=== PATIENT | male | born 1985 | race Caucasian/White ===

== ENCOUNTER 2016-12-05 06:07 | Inpatient (IN) | payer SELFPAY ==
[~2016-12-05] VITALS: Ht 167.6 cm; Wt 70.0 kg
[2016-12-05] VITALS (11 sets, daily range): BP systolic 131–149; BP diastolic 74–101; PULSE 70–102; RESP 18–20; TEMP 97.6–98.8; O2SAT 95–97
[2016-12-05] MEDS ORDERED: SODIUM CHLORIDE 0.9% FLUSH 10 ML FLUSH IVF PRN (06:30)
[2016-12-05] MEDS ORDERED: LORazepam 2 MG/ML VIAL IVS PRN (06:30)
--- NOTE | 2016-12-05 06:33 | PD ---
HPI . Seizure Chief Complaint: Seizure Time Seen by Provider: 06:19 Travel History International Travel<30 days: No Contact w/Intl Traveler<30days: No Traveled to known affect area: No History of Present Illness HPI Patient presents with the chief complaint of seizure. The patient's parents heard a thud in the bathroom. They found him unresponsive. EMS was called. The patient had a seizure prior to the arrival of EMS. We presumed that the was caused by a first seizure. The parents did not witness seizure activity initially but did witness seizure activity after hearing the side. The patient reports no prior history of seizures. He does give a prior history of alcohol abuse but states that he has not used alcohol for 3 months. He did have a drink last night. PFSH Past Medical History Medical History: Denies Significant Hx Tetanus Vaccination: Unknown Influenza Vaccination: No Past Surgical History Surgical History: No Previous Surgery Social History Alcohol Use: Yes (past etoh use. ) Tobacco Use: No Substance Use: No Allergies-Medications (Allergen,Severity, Reaction): Coded Allergies: No Known Allergies (Unverified , 12/05/16) Reported Meds & Prescriptions Reported Meds & Active Scripts Active No Active Prescriptions or Reported Medications Review of Systems Except as stated in HPI: all other systems reviewed are Neg Musculoskeletal: Positive: Pain (mid to low back pain. The patient believes that he struck his back on the bathtub.) Neurologic: Positive: Seizures Physical Exam Narrative GENERAL: The patient is currently awake and alert and fully oriented. He has amnestic for the events prior to his arrival. SKIN: Warm and dry. HEAD: Atraumatic. Normocephalic. EYES: Pupils equal and round. Extraocular movements are intact. ENT: No nasal bleeding or discharge. Mucous membranes pink and moist. NECK: Immobilized with a [place] collar. CARDIOVASCULAR: Regular rate and rhythm. Heart sounds normal. RESPIRATORY: No accessory muscle use. Lungs clear with full air movement throughout. GASTROINTESTINAL: Abdomen soft, non-tender, nondistended. MUSCULOSKELETAL: No obvious deformities. No edema. NEUROLOGICAL: Awake and alert. No obvious cranial nerve deficits. Motor grossly within normal limits. Normal speech. PSYCHIATRIC: Appropriate mood and affect; insight and judgment normal. Data Data Last Documented VS Vital Signs Date Time Temp Pulse Resp B/P (MAP) Pulse Ox O2 Delivery O2 Flow Rate FiO2 12/05/16 07:47 78 18 140/79 (99) 96 Room Air 12/05/16 06:13 98.6 Orders Orders Complete Blood Count With Diff (12/05/16 06:19) Basic Metabolic Panel (Bmp) (12/05/16 06:19) Alcohol (Ethanol) (12/05/16 06:19) Drug Screen, Random Urine (12/05/16 06:19) Ct Brain W/O Iv Contrast(Rout) (12/05/16 ) Ecg Monitoring (12/05/16 06:19) Iv Access Insert/Monitor (12/05/16 06:19) Oximetry (12/05/16 06:19) Sodium Chloride 0.9% Flush (Ns Flush) (12/05/16 06:30) Lorazepam Inj (Ativan Inj) (12/05/16 06:30) Ct Cerv Spine W/O Contrast (12/05/16 06:19) Ct Thor Spine W/O Contrast (12/05/16 06:19) Morphine Inj (Morphine Inj) (12/05/16 07:25) Morphine Inj (Morphine Inj) (12/05/16 07:45) Labs Laboratory Tests Test 12/05/16 06:40 White Blood Count 5.0 TH/MM3 Red Blood Count 4.81 MIL/MM3 Hemoglobin 15.1 GM/DL Hematocrit 44.8 % Mean Corpuscular Volume 93.1 FL Mean Corpuscular Hemoglobin 31.4 PG Mean Corpuscular Hemoglobin Concent 33.8 % Red Cell Distribution Width 13.9 % Platelet Count 129 TH/MM3 Mean Platelet Volume 9.3 FL Neutrophils (%) (Auto) 54.9 % Lymphocytes (%) (Auto) 36.2 % Monocytes (%) (Auto) 6.8 % Eosinophils (%) (Auto) 1.3 % Basophils (%) (Auto) 0.8 % Neutrophils # (Auto) 2.7 TH/MM3 Lymphocytes # (Auto) 1.8 TH/MM3 Monocytes # (Auto) 0.3 TH/MM3 Eosinophils # (Auto) 0.1 TH/MM3 Basophils # (Auto) 0.0 TH/MM3 CBC Comment AUTO DIFF Blood Urea Nitrogen 6 MG/DL Creatinine 1.09 MG/DL Random Glucose 155 MG/DL Calcium Level 10.0 MG/DL Sodium Level 139 MEQ/L Potassium Level 3.3 MEQ/L Chloride Level 98 MEQ/L Carbon Dioxide Level 19.8 MEQ/L Anion Gap 21 MEQ/L Estimat Glomerular Filtration Rate 79 ML/MIN Ethyl Alcohol Level LESS THAN 3 MG/DL MDM Medical Decision Making Medical Screen Exam Complete: Yes Emergency Medical Condition: Yes Differential Diagnosis Differential diagnosis of seizure includes but is not limited to epilepsy, electrolyte abnormality, previous stroke, closed head injury Narrative Course This patient presents with new onset seizure. He does give a history of previous alcohol abuse. He did sustain a fall with a seizure. Therefore, cervical precautions have been instituted. Seizure workup has been ordered including CT of his head, C-spine and thoracic spine (because of the fall/trauma) Ativan has been ordered when necessary. His care will be turned over to the oncoming physician at 7 AM. Diagnosis Primary Impression: Seizure Scripts No Active Prescriptions or Reported Meds Condition: Stable Jina Uriarte MD Dec 05, 2016 06:33
--- NOTE | 2016-12-05 06:49 | RADRPT ---
EXAM DATE/TIME: 12/05/2016 06:26 [facility] COMPARISON: No previous studies available for comparison. INDICATIONS : Trauma, possible seizure and fall. RADIATION DOSE: 56.35 CTDIvol (mGy) MEDICAL HISTORY : None SURGICAL HISTORY : None. ENCOUNTER: Initial ACUITY: 1 day PAIN SCALE: 2/10 LOCATION: cranial TECHNIQUE: Multiple contiguous axial images were obtained of the head. Using automated exposure control and adj ustment of the mA and/or kV according to patient size, radiation dose was kept as low as reasonably a chievable to obtain optimal diagnostic quality images. DICOM format image data is available electro nically for review and comparison. FINDINGS: CEREBRUM: The ventricles are normal for age. No evidence of midline shift, mass lesion, hemorrhage or acute in farction. No extra-axial fluid collections are seen. POSTERIOR FOSSA: The cerebellum and brainstem are intact. The 4th ventricle is midline. The cerebellopontine angle i s unremarkable. EXTRACRANIAL: The visualized portion of the orbits is intact. SKULL: The calvaria is intact. No evidence of skull fracture. CONCLUSION: Normal examination for a patient of this age. Jw Soriano MD on December 05, 2016 at 6:46 Board Certified Radiologist. This report was verified electronically.
--- NOTE | 2016-12-05 06:57 | RADRPT ---
EXAM DATE/TIME: 12/05/2016 06:28 [facility] COMPARISON: No previous studies available for comparison. INDICATIONS : Trauma, possible seizure and fall. RADIATION DOSE: 37.38 CTDIvol (mGy) MEDICAL HISTORY : None SURGICAL HISTORY : None. ENCOUNTER: Initial ACUITY: 1 day PAIN SCALE: 3/10 LOCATION: neck TECHNIQUE: Volumetric scanning of the cervical spine was performed. Multiplanar reconstructions in the sagittal, coronal and oblique axial planes were performed. Using automated exposure control and adjustment o f the mA and/or kV according to patient size, radiation dose was kept as low as reasonably achievable to obtain optimal diagnostic quality images. DICOM format image data is available electronically f or review and comparison. FINDINGS: VERTEBRAE: Normal vertebral body height. ALIGNMENT: No evidence of subluxation. C2-C3: The bony spinal canal is normal in size. No evidence of disc bulge or herniation. The neural forami na are bilaterally patent. C3-C4: The bony spinal canal is normal in size. No evidence of disc bulge or herniation. The neural forami na are bilaterally patent. C4-C5: The bony spinal canal is normal in size. No evidence of disc bulge or herniation. The neural forami na are bilaterally patent. C5-C6: The bony spinal canal is normal in size. No evidence of disc bulge or herniation. The neural forami na are bilaterally patent. C6-C7: The bony spinal canal is normal in size. No evidence of disc bulge or herniation. The neural forami na are bilaterally patent. C7-T1: The bony spinal canal is normal in size. No evidence of disc bulge or herniation. The neural forami na are bilaterally patent. CONCLUSION: Normal examination. Jw Soriano MD on December 05, 2016 at 6:54 Board Certified Radiologist. This report was verified electronically.
--- NOTE | 2016-12-05 07:02 | RADRPT ---
EXAM DATE/TIME: 12/05/2016 06:30 [facility] COMPARISON: No previous studies available for comparison. INDICATIONS : Trauma, possible seizure and fall. RADIATION DOSE: 15.23 CTDIvol (mGy) MEDICAL HISTORY : None SURGICAL HISTORY : None. ENCOUNTER: Initial ACUITY: 1 day PAIN SCALE: 7/10 LOCATION: thoracic. TECHNIQUE: Volumetric scanning of the thoracic spine was performed. Multiplanar reconstructions in the sagittal , coronal and oblique axial planes were performed. Using automated exposure control and adjustment o f the mA and/or kV according to patient size, radiation dose was kept as low as reasonably achievable to obtain optimal diagnostic quality images. DICOM format image data is available electronically f or review and comparison. FINDINGS: There is a [id number] compression fracture of T8 with minimal retropulsion. This does not resul t in significant canal stenosis. There is also a minimal superior endplate compression fracture of T10. No spondylolisthesis. No canal stenosis. No discrete disc protrusions. No other fractures are identified. CONCLUSION: 1. At T8 there is a [id number] compression fracture with minimal retropulsion but without signi ficant canal stenosis or spondylolisthesis. 2. Minimal relatively nondisplaced superior endplate fracture of T10 without retropulsion. 3. Minimal scoliosis. Jw Soriano MD on December 05, 2016 at 6:56 Board Certified Radiologist. This report was verified electronically.
[2016-12-05 07:14] LABS: AUTOMATED NEUTROPHIL # 2.7 TH/MM3 (1.8-7.7); BASOPHIL % 0.8 % (0.0-2.0); EOSINOPHIL # 0.1 TH/MM3 (0-0.4); EOSINOPHIL % 1.3 % (0.0-4.0); HEMATOCRIT 44.8 % (39.0-51.0); LYMPH % 36.2 % (9.0-44.0); LYMPHOCYTE # 1.8 TH/MM3 (1.0-4.8); MEAN CELL VOLUME 93.1 FL (80.0-100.0); MEAN CORPUSCULAR HEMOGLOBIN 31.4 PG (27.0-34.0); MEAN CORPUSCULAR HGB CONC 33.8 % (32.0-36.0); MONO % 6.8 % (0.0-8.0); NEUT % 54.9 % (16.0-70.0); PLATELET COUNT 129 TH/MM3 (150-450); RED BLOOD COUNT 4.81 MIL/MM3 (4.50-5.90); RED CELL DISTRIBUTION WIDTH 13.9 % (11.6-17.2)
[2016-12-05 07:17] LABS: HEMO FLAGS AUTO DIFF
[2016-12-05] MEDS ORDERED: MORPHINE SULFATE 8 MG/ML INJ ONE (07:25)
[2016-12-05 07:30] LABS: ANION GAP 21 MEQ/L (5-15); BICARBONATE 19.8 MEQ/L (21.0-32.0); BLOOD UREA NITROGEN 6 MG/DL (7-18); CHLORIDE 98 MEQ/L (98-107); GLOMERULAR FILTRATION RATE 79 ML/MIN (>89); POTASSIUM 3.3 MEQ/L (3.5-5.1); SODIUM (NA) 139 MEQ/L (136-145)
[2016-12-05 07:43] LABS: ALCOHOL LESS THAN 3 MG/DL (0-5)
[2016-12-05] MEDS ORDERED: MORPHINE SULFATE 4 MG/ML INJ IV PUSH ONE (07:45)
[2016-12-05] MEDS ORDERED: ACETAMINOPHEN 325 MG TAB PO PRN (08:15)
[2016-12-05] MEDS ORDERED: SODIUM CHLORIDE 0.9% FLUSH 10 ML FLUSH IV FLUSH PRN (08:15)
[2016-12-05] MEDS ORDERED: LACTULOSE SYRUP 20 GM/30 ML CUP PO PRN (08:15)
[2016-12-05] MEDS ORDERED: ONDANSETRON HCL 4 MG/2 ML VIAL IVP PRN (08:15)
[2016-12-05] MEDS ORDERED: NALOXONE HCL 0.4 MG/ML AMP IV PRN (08:15)
[2016-12-05] MEDS ORDERED: BISACODYL 10 MG SUPP RECTAL PRN (08:15)
[2016-12-05] MEDS ORDERED: MAGNESIUM HYDROXIDE SUSP 30 ML CUP PO PRN (08:15)
[2016-12-05] MEDS ORDERED: SENNOSIDES 8.6 MG TAB PO PRN (08:15)
[2016-12-05 08:20] LABS: BANDS 7 % (0-6); MYELOCYTES 2 % (0-0); NEUTROPHIL # MANUAL DIFF 2.8 TH/MM3 (1.8-7.7); POLYS (SEG NEUTROPHILS) 47 % (16-70); WBC DIFF SAMPLE 100
[2016-12-05 08:21] LABS: PLATELET ESTIMATE SMEAR LOW (NORMAL); PLATELET MORPHOLOGY NORMAL (NORMAL); SCAN/DIFF FINAL DIFF MANUAL
--- NOTE | 2016-12-05 08:44 | PD ---
Physical Exam Date Seen by Provider: Dec 05, 2016 Time Seen by Provider: 08:42 Narrative 31-year-old male came to the emergency room with history of a seizure that was heard by his parents upstairs in his bathroom. Patient used to be an alcoholic but was recovering and then drank alcohol yesterday. He has never had seizures before. Please refer to the previous ER physician's notes for history and physical details. Case was signed out to me to follow-up on the CAT scan and blood test result. CT scan of the thoracic spine showed T8 compression fracture. I discussed the case with the admitting physician who has accepted the patient which is Dr. Oviedo. I discussed the case with the neurosurgeon Dr. Cortes who will consult on the patient. Patient is currently getting medicated for pain. Patient and family has been notified about the findings. Data Data Last Documented VS Vital Signs Date Time Temp Pulse Resp B/P (MAP) Pulse Ox O2 Delivery O2 Flow Rate FiO2 12/05/16 08:00 88 18 134/76 (95) 96 Room Air 12/05/16 06:13 98.6 Orders Orders Complete Blood Count With Diff (12/05/16 06:19) Basic Metabolic Panel (Bmp) (12/05/16 06:19) Alcohol (Ethanol) (12/05/16 06:19) Drug Screen, Random Urine (12/05/16 06:19) Ct Brain W/O Iv Contrast(Rout) (12/05/16 ) Ecg Monitoring (12/05/16 06:19) Iv Access Insert/Monitor (12/05/16 06:19) Oximetry (12/05/16 06:19) Sodium Chloride 0.9% Flush (Ns Flush) (12/05/16 06:30) Lorazepam Inj (Ativan Inj) (12/05/16 06:30) Ct Cerv Spine W/O Contrast (12/05/16 06:19) Ct Thor Spine W/O Contrast (12/05/16 06:19) Morphine Inj (Morphine Inj) (12/05/16 07:25) Morphine Inj (Morphine Inj) (12/05/16 07:45) Place In Observation (12/05/16 ) Vital Signs (Adult) Q4H (12/05/16 08:05) Neuro Checks Q4H (12/05/16 08:05) Activity Oob With Assistance (12/05/16 08:05) Diet Heart Healthy (12/05/16 Breakfast) Sodium Chlor 0.9% 1000 Ml Inj (Ns 1000 M (12/05/16 09:00) Sodium Chloride 0.9% Flush (Ns Flush) (12/05/16 08:15) Sodium Chloride 0.9% Flush (Ns Flush) (12/05/16 09:00) Acetaminophen (Tylenol) (12/05/16 08:15) Ondansetron Inj (Zofran Inj) (12/05/16 08:15) Basic Metabolic Panel (Bmp) (12/06/16 06:00) Complete Blood Count With Diff (12/06/16 06:00) Resp Oxygen Sebastian C Titrat 1-4 L (12/05/16 ) Scd Bilateral/Knee High SHANELL.BID (12/05/16 08:05) Naloxone Inj (Narcan Inj) (12/05/16 08:15) Docusate Sodium-Senna (Tori-Colace) (12/05/16 09:00) Magnesium Hydroxide Liq (Milk Of Magnesi (12/05/16 08:15) Sennosides (Senokot) (12/05/16 08:15) Bisacodyl Supp (Dulcolax Supp) (12/05/16 08:15) Lactulose Liq (Lactulose Liq) (12/05/16 08:15) Consult Neurology (12/05/16 ) Consult Neurosurgery (12/05/16 ) (Hub Use Only)Inp Phy Cons/Ref (12/05/16 ) (Hub Use Only)Inp Phy Cons/Ref (12/05/16 ) Admit Order (Ed Use Only) (12/05/16 08:21) Labs Laboratory Tests Test 12/05/16 06:40 White Blood Count 5.0 TH/MM3 Red Blood Count 4.81 MIL/MM3 Hemoglobin 15.1 GM/DL Hematocrit 44.8 % Mean Corpuscular Volume 93.1 FL Mean Corpuscular Hemoglobin 31.4 PG Mean Corpuscular Hemoglobin Concent 33.8 % Red Cell Distribution Width 13.9 % Platelet Count 129 TH/MM3 Mean Platelet Volume 9.3 FL Neutrophils (%) (Auto) 54.9 % Lymphocytes (%) (Auto) 36.2 % Monocytes (%) (Auto) 6.8 % Eosinophils (%) (Auto) 1.3 % Basophils (%) (Auto) 0.8 % Neutrophils # (Auto) 2.7 TH/MM3 Lymphocytes # (Auto) 1.8 TH/MM3 Monocytes # (Auto) 0.3 TH/MM3 Eosinophils # (Auto) 0.1 TH/MM3 Basophils # (Auto) 0.0 TH/MM3 CBC Comment AUTO DIFF Differential Total Cells Counted 100 Neutrophils % (Manual) 47 % Band Neutrophils % 7 % Lymphocytes % 33 % Monocytes % 11 % Neutrophils # (Manual) 2.8 TH/MM3 Myelocytes 2 % Differential Comment FINAL DIFF MANUAL Platelet Estimate LOW Platelet Morphology Comment NORMAL Red Cell Morphology Comment NORMAL Blood Urea Nitrogen 6 MG/DL Creatinine 1.09 MG/DL Random Glucose 155 MG/DL Calcium Level 10.0 MG/DL Sodium Level 139 MEQ/L Potassium Level 3.3 MEQ/L Chloride Level 98 MEQ/L Carbon Dioxide Level 19.8 MEQ/L Anion Gap 21 MEQ/L Estimat Glomerular Filtration Rate 79 ML/MIN Hemoglobin A1c 5.2 % 25-Hydroxy Vitamin D Total 29.8 ng/ML Ethyl Alcohol Level LESS THAN 3 MG/DL MDM Supervised Visit with MEGGAN: No Physician Communication Physician Communication Dr. Cortes Diagnosis Primary Impression: Seizure Additional Impressions: New onset seizure Compression fx, thoracic spine Qualified Codes: S22.000A - Wedge compression fracture of unspecified thoracic vertebra, initial encounter for closed fracture Admitting Information Admitting Physician Requests: Admit Scripts Potassium Chloride ER (K-Tab) 10 Meq Tab 10 MEQ PO BID for Electrolyte Replacement, #10 TAB 0 Refills Prov: Justino Oviedo DO 12/06/16 Folic Acid-B12-B6 (Foltabs) 0.8-115-10 Mg Tab 1 TAB PO DAILY for Nutritional Supplement, #30 TAB 0 Refills Prov: Justino Oviedo DO 12/06/16 Thiamine HCl (Gnp Vitamin B-1) 100 Mg Tab 100 MG PO DAILY for Vitamin, #30 TAB Prov: Justino Oviedo DO 12/06/16 Oxycodone-Acetaminophen (Oxycodone-Acetaminophen) 7.5-325 mg Tab 1 TAB PO Q6H Y for pain scale 5-10, #30 TAB Prov: Justino Oviedo DO 12/06/16 Chlordiazepoxide HCl (Chlordiazepoxide HCl) 10 Mg Capsule 10 MG PO QID Y for Alcohol withdrawal, #20 CAP Prov: Justino Oviedo DO 12/06/16 Condition: Stable Lazaro Flood MD Dec 05, 2016 08:44
[2016-12-05] MEDS: DOCUSATE SODIUM 50 MG/SENNA 8.6 MG TAB PO SCH ×2 (09:00→21:00)
[2016-12-05] MEDS ORDERED: traMADol HCL 50 MG TAB PO PRN (09:00)
[2016-12-05] MEDS: SODIUM CHLORIDE 0.9% FLUSH 10 ML FLUSH IV FLUSH SCH ×2 (09:00→22:26)
[2016-12-05] MEDS ORDERED: LORazepam 2 MG/ML VIAL IV PUSH PRN ×5 (09:15→09:30)
[2016-12-05] MEDS: SODIUM CHLOR 0.9% 1000 ML INJ 1,000 ML IV SCH ×2 (09:28→22:25)
[2016-12-05] MEDS: POTASSIUM CHLORIDE 25 MEQ EFFERVESCENT TAB NG SCH (09:28)
[2016-12-05] MEDS ORDERED: FLUMAZENIL 0.5 MG/5 ML VIAL IV PUSH PRN (09:30)
[2016-12-05] MEDS ORDERED: HALOPERIDOL LACTATE 5 MG/ML AMP IM PRN (09:30)
[2016-12-05] MEDS ORDERED: LORazepam 2 MG TAB PO PRN (09:30)
[2016-12-05] MEDS ORDERED: LORazepam 1 MG TAB PO PRN (09:30)
--- NOTE | 2016-12-05 09:42 | HHI.HP ---
[facility] Service [facility] Primary Care Physician Bill Mcallister MD Admission Diagnosis New onset seizure, T8 compression fracture, Diagnoses: Chief Complaint: seizure Travel History International Travel<30 Days: No Contact w/Intl Traveler <30 Da: No Traveled to Known Affected Are: No History of Present Illness Written by Dian Dejesus, acting as scribe for Dr. Oviedo on 12/05/16 at 09:41. This note was transcribed by scribe BRIGETTE Weiss. I, Dr. Pedro Oviedo personally performed the history, physical exam, and medical decision making; and confirmed the accuracy of the information in the transcribed note. Authenticated by Dr. Pedro Oviedo on 12/05/16 at 21:54. 31-year-old male with history of alcohol abuse presents after a seizure this morning 12/05. The patient states he quit drinking alcohol 3 months ago however has been drinking intermittently when the tremors become severe. 8 days ago he made a decision to quit drinking altogether. Yesterday he had severe shakes so he decided to have 1 beer last night. This morning at 5:30am he went to the restroom then he vaguely remembers the onset of a seizure but has little recollection after. The patient's mother and father are at bedside who assist with the history. His mother states she heard a loud noise this morning, ran into the restroom and found the patient had fallen off the toilet, pants around ankles, with his head against the wall and full body shaking/convulsing. No reported tongue biting, or bowel/bladder incontinence however he had just used the restroom and with a loose stool in the toilet. His father at bedside says his pupils were fixed and dilated but he was still breathing. The patient was very confused and not responding. They suspect when the patient started seizing , he fell forward hitting the top of his head on the wall. Family reports no prior episodes of seizures. His mother states he has been trying very hard to quit drinking however has significant tremors when he stops drinking. She also reports he has been confused lately with poor memory. 2-3 days ago he did have a couple beers because of the tremors. Yesterday his mother administered 3 very small doses of liquor. The patient has been reading a lot on how to quit alcohol and how to taper off. The patient is still very motivated to quit drinking however admits it has been very difficult. The patient reports some mid back pain but denies any lower extremity numbness or weakness. He denies any fevers/chills, chest pain, shortness of breath, nausea/vomiting, or abdominal pains. Review of Systems Except as stated in HPI: all other systems reviewed are Neg Past Family Social History Past Medical History Denies any significant medical history. Past Surgical History Denies any prior major surgeries. Reported Medications Denies taking any medications on a regular basis. Allergies: Coded Allergies: No Known Allergies (Unverified , 12/05/16) Active Ordered Medications Current Medications Medications (Trade) Dose Ordered Sig/Oz Route Start Time Stop Time Status Last Admin Sodium Chloride 1,000 ml @ 100 mls/hr Q10H IV 12/05/16 09:00 12/05/16 09:28 (NS Flush) 2 ml UNSCH PRN IV FLUSH 12/05/16 08:15 (NS Flush) 2 ml BID IV FLUSH 12/05/16 09:00 (Tylenol) 650 mg Q4H PRN PO 12/05/16 08:15 (Zofran Inj) 4 mg Q6H PRN IVP 12/05/16 08:15 (Narcan Inj) 0.4 mg UNSCH PRN IV 12/05/16 08:15 (Tori-Colace) 1 tab BID PO 12/05/16 09:00 (Milk Of Magnesia Liq) 30 ml Q12H PRN PO 12/05/16 08:15 (Senokot) 17.2 mg Q12H PRN PO 12/05/16 08:15 (Dulcolax Supp) 10 mg DAILY PRN RECTAL 12/05/16 08:15 (Lactulose Liq) 30 ml DAILY PRN PO 12/05/16 08:15 (K-Lyte Cl Eff) 25 meq DAILY NG 12/05/16 09:00 12/05/16 09:28 (Ativan Inj) 1 mg Q2H PRN IV PUSH 12/05/16 09:15 Multivitamins 10 ml/Folic Acid 1 mg/Sodium Chloride 510.2 ml @ 125 mls/hr Q24H IV 12/05/16 12:00 12/10/16 11:59 Thiamine HCl 100 mg/Sodium Chloride 101 ml @ 100 mls/hr Q24H IV 12/05/16 12:00 12/08/16 11:59 (Vitamin B1) 100 mg DAILY PO 12/08/16 09:00 (Romazicon Inj) 0.2 mg Q1M PRN IV PUSH 12/05/16 09:30 (Ativan) 1 mg Q4H PRN PO 12/05/16 09:30 (Ativan Inj) 1 mg Q4H PRN IV PUSH 12/05/16 09:30 (Ativan) 2 mg Q2H PRN PO 12/05/16 09:30 (Ativan Inj) 2 mg Q2H PRN IV PUSH 12/05/16 09:30 (Ativan Inj) 2 mg Q1H PRN IV PUSH 12/05/16 09:30 (Ativan Inj) 2 mg Q15M PRN IV PUSH 12/05/16 09:30 (Haldol Inj) 2 mg Q15M PRN IM 12/05/16 09:30 (Percocet 7.5-325 Mg) 1 tab Q6H PRN PO 12/05/16 09:45 12/05/16 11:18 (Morphine Inj) 2 mg Q3H PRN IV PUSH 12/05/16 10:00 Family History Paternal grandfather with diabetes, age 61 with CHF (no [place] or arrhythmia) Father with throat cancer, survived Social History Quit smoking cigarettes 3 months ago, now using vapor or e-cigarette occasionally Prior heavy alcohol abuse, now trying to quit Denies any illicit drug use (although admits to taking 1/2tab of a friend's Percocet a few days ago for back pain after moving boxes/furniture, mother verifies this) Physical Exam Vital Signs Vital Signs Date Time Temp Pulse Resp B/P (MAP) Pulse Ox O2 Delivery O2 Flow Rate FiO2 12/05/16 08:36 96 21 12/05/16 07:47 78 18 140/79 (99) 96 Room Air 12/05/16 07:47 96 Room Air 12/05/16 06:13 98.6 102 18 140/80 (100) 95 Physical Exam GENERAL: Well-nourished, well-developed patient in NAD. Tremulous. SKIN: Warm and dry. No rash. HEAD: Normocephalic. Atraumatic. EYES: Pupils equal and round. No scleral icterus. No injection or drainage. ENT: No nasal bleeding or discharge. Mucous membranes pink and moist. NECK: Supple. Trachea midline. CARDIOVASCULAR: Regular rate and rhythm. S1, S2 noted. No murmur appreciated. RESPIRATORY: No accessory muscle use. Clear to auscultation. Breath sounds equal bilaterally. GASTROINTESTINAL: Abdomen soft, non-tender, nondistended. Normoactive bowel sounds x4. MUSCULOSKELETAL: No obvious deformities. Extremities without clubbing, cyanosis , or edema. NEUROLOGICAL: Awake and alert. No obvious cranial nerve deficits. Motor grossly within normal limits. 5/5 muscle strength in bilateral upper and lower extremities. Normal speech. PSYCHIATRIC: Anxious mood; insight and judgment normal. Laboratory Laboratory Tests Test 12/05/16 06:40 12/05/16 08:30 White Blood Count 5.0 Red Blood Count 4.81 Hemoglobin 15.1 Hematocrit 44.8 Mean Corpuscular Volume 93.1 Mean Corpuscular Hemoglobin 31.4 Mean Corpuscular Hemoglobin Concent 33.8 Red Cell Distribution Width 13.9 Platelet Count 129 Mean Platelet Volume 9.3 Neutrophils (%) (Auto) 54.9 Lymphocytes (%) (Auto) 36.2 Monocytes (%) (Auto) 6.8 Eosinophils (%) (Auto) 1.3 Basophils (%) (Auto) 0.8 Neutrophils # (Auto) 2.7 Lymphocytes # (Auto) 1.8 Monocytes # (Auto) 0.3 Eosinophils # (Auto) 0.1 Basophils # (Auto) 0.0 CBC Comment AUTO DIFF Differential Total Cells Counted 100 Neutrophils % (Manual) 47 Band Neutrophils % 7 Lymphocytes % 33 Monocytes % 11 Neutrophils # (Manual) 2.8 Myelocytes 2 Differential Comment FINAL DIFF MANUAL Platelet Estimate LOW Platelet Morphology Comment NORMAL Red Cell Morphology Comment NORMAL Blood Urea Nitrogen 6 Creatinine 1.09 Random Glucose 155 Calcium Level 10.0 Sodium Level 139 Potassium Level 3.3 Chloride Level 98 Carbon Dioxide Level 19.8 Anion Gap 21 Estimat Glomerular Filtration Rate 79 Ethyl Alcohol Level LESS THAN 3 Urine Opiates Screen POS Urine Barbiturates Screen NEG Urine Amphetamines Screen NEG Urine Benzodiazepines Screen NEG Urine Cocaine Screen NEG Urine Cannabinoids Screen NEG Result Diagram: 12/05/16 0640 12/05/16 0640 Imaging 12/05/16- CT brain without IV contrast normal 12/05/16- CT cervical spine without contrast unremarkable 12/05/16- CT thoracic spine: T8 with mild to moderate compression fracture with minimal retropulsion but without significant canal stenosis or spondylolisthesis ; minimal relatively nondisplaced superior endplate fracture of T10 without retropulsion; minimal scoliosis Caprini VTE Risk Assessment Caprini VTE Risk Assessment: No/Low Risk (score <= 1) Caprini Risk Assessment Model Point Value = 1 Point Value = 2 Point Value = 3 Point Value = 5 Age 41-60 Minor surgery BMI > 25 kg/m2 Swollen legs Varicose veins or History of unexplained or recurrent spontaneous Oral contraceptives or hormone replacement Sepsis (< 1 month) Serious lung disease, including pneumonia (< 1 month) Abnormal pulmonary function Acute myocardial infarction Congestive heart failure (< 1 month) History of inflammatory bowel disease Medical patient at bed rest Age 61-74 Arthroscopic surgery Major open surgery (> 45 min) Laparoscopic surgery (> 45 min) Malignancy Confined to bed (> 72 hours) Immobilizing plaster cast Central venous access Age >= 75 History of VTE Family history of VTE Factor V Leiden Prothrombin [id number] Lupus anticoagulant Anticardiolipin antibodies Elevated serum homocysteine Heparin-induced thrombocytopenia Other congenital or acquired thrombophilia Stroke (< 1 month) Elective arthroplasty Hip, pelvis, or leg fracture Acute spinal cord injury (< 1 month) Prophylaxis Regimen Total Risk Factor Score Risk Level Prophylaxis Regimen 0-1 Low Early ambulation 2 Moderate Order ONE of the following: *Sequential Compression Device (SCD) *Heparin 5000 units SQ BID 3-4 Higher Order ONE of the following medications: *Heparin 5000 units SQ TID *Enoxaparin/Lovenox 40 mg SQ daily (WT < 150 kg, CrCl > 30 mL/min) *Enoxaparin/Lovenox 30 mg SQ daily (WT < 150 kg, CrCl > 10-29 mL/min) *Enoxaparin/Lovenox 30 mg SQ BID (WT < 150 kg, CrCl > 30 mL/min) AND/OR *Sequential Compression Device (SCD) 5 or more Highest Order ONE of the following medications: *Heparin 5000 units SQ TID (Preferred with Epidurals) *Enoxaparin/Lovenox 40 mg SQ daily (WT < 150 kg, CrCl > 30 mL/min) *Enoxaparin/Lovenox 30 mg SQ daily (WT < 150 kg, CrCl > 10-29 mL/min) *Enoxaparin/Lovenox 30 mg SQ BID (WT < 150 kg, CrCl > 30 mL/min) AND *Sequential Compression Device (SCD) Assessment and Plan Problem List: (1) New onset seizure ICD Code: R56.9 - Unspecified convulsions Status: Acute (2) Compression fx, thoracic spine ICD Code: S22.000A - Wedge compression fracture of unspecified thoracic vertebra, initial encounter for closed fracture Status: Acute Assessment and Plan 31-year-old male with history of alcohol abuse presents after a seizure this morning 12/05. New Onset Seizure: suspect alcohol withdrawal. Patient has been trying to quit alcohol. Head CT images reviewed, no acute findings. Etoh level 3. UDS positive for opiates only, patient admits taking 1/2tab of perocet few days ago for back pain (story endorsed by his mother) -Checking brain MRI with and without contrast -Check EEG -seizure precautions, neuro checks -IV ativan prn seizure -consult neurology, discussed with Dr. Khan -treat alcohol withdrawal Acute Alcohol Withdrawal: patient very tremulous and anxious, confused at times , consistent with alcohol withdrawal -start on IV thiamine/MV/folate -[facility] protocol -will ask CM to provide info on outpatient alcohol rehab/resources Compression Fracture: suspect acute secondary to fall with seizure as above. CT thoracic spine images reviewed, T8 with mild to moderate compression fracture with minimal retropulsion but without significant canal stenosis or spondylolisthesis; minimal relatively nondisplaced superior endplate fracture of T10 without retropulsion; minimal scoliosis. -Consult neurosurgery -Checking T-spine MRI -pain control with Percocet prn and IV morphine prn breakthrough pain Hypokalemia: K 3.3 -replaced with po KCl in the ED -recheck labs in the am Vitamin D Deficiency: vitamin D level 29, suspect secondary to alcohol abuse and poor nutrition -give cholecalciferol [id number] x1 now -will give rx for vitamin D3 at discharge Dehydration: diminished GFR 79, dry MM on exam -give IVF hydration -repeat BMP in am DVT Prophylaxis: teds/SCDs Discussed Condition With ER MD, Patient, patient's mother/father, Dr. Khan Physician Certification 2 Midnight Certification Type: Admission for Inpatient Services Order for Inpatient Services The services are ordered in accordance with Medicare regulations or non- Medicare payer requirements, as applicable. In the case of services not specified as inpatient-only, they are appropriately provided as inpatient services in accordance with the 2-midnight benchmark. Estimated LOS (days): 3 days is the estimated time the patient will need to remain in the hospital, assuming treatment plan goals are met and no additional complications. Post-Hospital Plan: Home Problem Qualifiers (1) Compression fx, thoracic spine: Qualified Codes: S22.000A - Wedge compression fracture of unspecified thoracic vertebra, initial encounter for closed fracture Dian Dejesus PA-C Dec 05, 2016 09:42 Justino Oviedo DO Dec 05, 2016 21:55
--- NOTE | 2016-12-05 10:04 | MB ---
cc: EDWIN MORRIS M.D. DATE OF CONSULTATION: 12/05/2016 HISTORY OF PRESENT ILLNESS The patient is a 31-year-old seen in neurological consultation in regards to a new onset seizure which happened earlier this morning. The patient was found by his parents in a small bathroom having generalized tonic-clonic seizures. The parents apparently heard a noise and came to assist him. The patient has been trying to quit alcohol. It is unclear as to how much he drinks, but to me he states he last drank four or five drinks some seven or eight days ago. He was also positive for opiates and admitted that he had a half tablet of Percocet some five days ago. He never had seizures before. He is taking no medication on a regular basis. IMAGING He had a CT of the brain that was normal. CT cervical spine was normal. CT of the thoracic spine showed a T8 compression fracture with minimal retropulsion motion without significant canal stenosis. There is also a minimally nondisplaced endplate fracture of T10. LABORATORY The laboratory data shows essentially normal CBC. Chemistry with a sodium of 139, potassium 3.3, BUN 6, creatinine 1.09, blood sugar 155, calcium 10.0, and urine toxicology positive for opiates. NEUROLOGICAL EXAMINATION On exam the patient has some mild tremulousness and he admits being jittery. His reflexes were 2+ throughout and plantar responses flexor. Ocular movements and visual cerna full. Pupils equal and reactive. He is alert, anxious and oriented. ASSESSMENT New onset seizure, probable alcohol withdrawal seizure. The exact amount and duration of his most recent drinking is not well clarified. Also, positive urine opiates. PLAN/RECOMMENDATIONS I do not think we need anticonvulsants at this point. Aggressive medical management for alcohol withdrawal syndrome/delirium tremens possibly impending. IV fluids. MRI of brain with and without contrast and EEG studies. PRN benzos. I discussed this with the admitting medical team. Thank you for asking us to assist in his care. I will follow him with you. Edwin Morris MD [facility]/BT /9:38 AM /9:52 AM
[2016-12-05] MEDS: oxyCODONE/ACETAMINOPHEN 7.5 MG/325 MG TAB PO PRN ×2 (11:18→15:53)
--- NOTE | 2016-12-05 11:41 | PD.CONS ---
[facility] Service neurosurg Consult Requested By [facility] Reason for Consult Thoracic fracture Primary Care Physician Bill Mcallister MD History of Present Illness This is a 31-year-old male brought to [facility] with new onset seizures earlier this morning. He was found by his parents in a small bathroom having generalized tonic-clonic seizures. The parents apparently heard a noise and came to assist him. The patient has been trying to quit alcohol. He states he last drank four or five drinks some seven or eight days ago. He was also positive for opiates. He never had seizures before. He is taking no medication on a regular basis. He denies any focal motor weakness. He denies any sensory loss. He denies any incontinence of stool or urine. CT of the thoracic spine showed a T8 compression fracture with minimal retropulsion motion without significant canal stenosis. Neurosurgical consultation was requested m. Review of Systems Constitutional: DENIES: Diaphoretic episodes, Fatigue, Fever, Weight gain, Weight loss, Chills, Dizziness, Change in appetite, Night Sweats Endocrine: DENIES: Heat/cold intolerance, Polydipsia, Polyuria, Polyphagia Eyes: DENIES: Blurred vision, Diplopia, Eye inflammation, Eye pain, Vision loss , Photosensitivity, Double Vision Ears, nose, mouth, throat: DENIES: Tinnitus, Hearing loss, Vertigo, Nasal discharge, Oral lesions, Throat pain, Hoarseness, Ear Pain, Running Nose, Epistaxis, Sinus Pain, Toothache, Odynophagia Respiratory: DENIES: Apneas, Cough, Snoring, Wheezing, Hemoptysis, Sputum production, Shortness of breath Cardiovascular: DENIES: Chest pain, Palpitations, Syncope, Dyspnea on Exertion , PND, Lower Extremity Edema, Orthopnea, Claudication Gastrointestinal: DENIES: Abdominal pain, Black stools, Bloody stools, Constipation, Diarrhea, Nausea, Vomiting, Difficulty Swallowing, Anorexia Genitourinary: DENIES: Sexual dysfunction, Urinary frequency, Urinary incontinence, Urgency, Hematuria, Dysuria, Nocturia, Penile Discharge, Testicular Pain, Testicular Swelling Musculoskeletal: COMPLAINS OF: Back pain, DENIES: Joint pain, Muscle aches, Stiffness, Joint Swelling, Neck pain Hematologic/lymphatic: DENIES: Bruising, Lymphadenopathy Immunologic/allergic: DENIES: Eczema, Urticaria Neurologic: DENIES: Abnormal gait, Headache, Localized weakness, Paresthesias, Seizures, Speech Problems, Tremor, Poor Balance Past Family Social History Allergies: Coded Allergies: No Known Allergies (Unverified , 12/05/16) Past Medical History None Past Surgical History none Reported Medications None Active Ordered Medications Current Medications Sodium Chloride (NS Flush) 2 ml UNSCH PRN IVF FLUSH AFTER USING IV ACCESS; Start 12/05/16 at 06:30; Stop 12/05/16 at 09:18; Status DC Lorazepam (Ativan Inj) 2 mg ONCE PRN IVS seizure; Start 12/05/16 at 06:30; Stop 12/05/16 at 09:24; Status DC Morphine Sulfate (Morphine Inj) 8 mg STK-MED ONCE .ROUTE ; Start 12/05/16 at 07: 25; Stop 12/05/16 at 07:26; Status DC Morphine Sulfate (Morphine Inj) 4 mg ONCE ONCE IV PUSH Last administered on 07:41; Start 12/05/16 at 07:45; Stop 12/05/16 at 07:46; Status DC Sodium Chloride 1,000 ml @ 100 mls/hr Q10H IV Last administered on 12/05/16 09:28; Start 12/05/16 at 09:00 Sodium Chloride (NS Flush) 2 ml UNSCH PRN IV FLUSH FLUSH AFTER USING IV ACCESS ; Start 12/05/16 at 08:15 Sodium Chloride (NS Flush) 2 ml BID IV FLUSH ; Start 12/05/16 at 09:00 Acetaminophen (Tylenol) 650 mg Q4H PRN PO Headache, fever, pain 1-4; Start at 08:15 Ondansetron HCl (Zofran Inj) 4 mg Q6H PRN IVP NAUSEA OR VOMITING; Start at 08:15 Naloxone HCl (Narcan Inj) 0.4 mg UNSCH PRN IV SEE LABEL COMMENTS; Start at 08:15 Senna/Docusate Sodium (Tori-Colace) 1 tab BID PO ; Start 12/05/16 at 09:00 Magnesium Hydroxide (Milk Of Magnesia Liq) 30 ml Q12H PRN PO MILD - MODERATE CONSTIPATION; Start 12/05/16 at 08:15 Sennosides (Senokot) 17.2 mg Q12H PRN PO MODERATE - SEVERE CONSTIPATION; Start 12/05/16 at 08:15 Bisacodyl (Dulcolax Supp) 10 mg DAILY PRN RECTAL SEVERE CONSITIPATION; Start at 08:15 Lactulose (Lactulose Liq) 30 ml DAILY PRN PO SEVERE CONSITIPATION; Start at 08:15 Potassium Bicarb/ Potassium Chloride (K-Lyte Cl Eff) 25 meq DAILY NG Last administered on 12/05/16 09:28; Start 12/05/16 at 09:00 Tramadol HCl (Ultram) 50 mg Q8H PRN PO PAIN SCALE 5 TO 10 Last administered on 12/05/16 09:29; Start 12/05/16 at 09:00; Stop 12/05/16 at 09:34; Status DC Lorazepam (Ativan Inj) 1 mg Q2H PRN IV PUSH seizure/alcohol withdrawal; Start 12/05/16 at 09:15 Multivitamins 10 ml/Folic Acid 1 mg/Sodium Chloride 510.2 ml @ 125 mls/hr Q24H IV ; Start 12/05/16 at 12:00; Stop 12/10/16 at 11:59 Thiamine HCl 100 mg/Sodium Chloride 101 ml @ 100 mls/hr Q24H IV ; Start at 12:00; Stop 12/08/16 at 11:59 Thiamine HCl (Vitamin B1) 100 mg DAILY PO ; Start 12/08/16 at 09:00 Flumazenil (Romazicon Inj) 0.2 mg Q1M PRN IV PUSH SEE LABEL COMMENTS; Start at 09:30 Lorazepam (Ativan) 1 mg Q4H PRN PO CIWA 8 - 10; Start 12/05/16 at 09:30 Lorazepam (Ativan Inj) 1 mg Q4H PRN IV PUSH CIWA 8 - 10; Start 12/05/16 at 09: 30 Lorazepam (Ativan) 2 mg Q2H PRN PO CIWA 11-14; Start 12/05/16 at 09:30 Lorazepam (Ativan Inj) 2 mg Q2H PRN IV PUSH CIWA 11-14; Start 12/05/16 at 09:30 Lorazepam (Ativan Inj) 2 mg Q1H PRN IV PUSH CIWA 15-20; Start 12/05/16 at 09:30 Lorazepam (Ativan Inj) 2 mg Q15M PRN IV PUSH CIWA > 20; Start 12/05/16 at 09:30 Haloperidol Lactate (Haldol Inj) 2 mg Q15M PRN IM SEE LABEL COMMENTS; Start at 09:30 Oxycodone/ Acetaminophen (Percocet 7.5-325 Mg) 1 tab Q6H PRN PO pain scale 5- 10 Last administered on 12/05/16t 11:18; Start 12/05/16 at 09:45 Morphine Sulfate (Morphine Inj) 2 mg Q3H PRN IV PUSH breakthrough pain; Start 12/05/16 at 10:00 Family History His family history was reviewed and is noncontributory to his traumatic event. No history of seizures of brain tumors Paternal grandfather with diabetes, age 61 with CHF (no [place] or arrhymthmia) Father with throat cancer, survived Social History Quit smoking cigarettes 3 months ago, now using vapor or e-cigarette occasionally Physical Exam Vital Signs Vital Signs Date Time Temp Pulse Resp B/P (MAP) Pulse Ox O2 Delivery O2 Flow Rate FiO2 12/05/16 08:36 96 21 12/05/16 07:47 78 18 140/79 (99) 96 Room Air 12/05/16 07:47 96 Room Air 12/05/16 06:13 98.6 102 18 140/80 (100) 95 Physical Exam The patient is alert, awake and oriented to time, place and person. Speech is fluent. Higher cognitive functions are normal. He has some mild tremulousness Cranial nerve examination demonstrates the pupils to be equal, round, and reactive to light. Extra-ocular movements are intact. Facial motor and sensory function are normal and symmetrical. Gross hearing is intact, bilaterally. The uvula is midline and elevates symmetrically with the soft palate. Sternocleidomastoid and trapezius muscles have normal and symmetrical strength. Other cranial nerves are intact. Neck is soft and supple. Cervical spine has a full range of motion in anterior flexion, extension, lateral bending, and rotation without pain. There is no tenderness to palpation to the spinous processes or paraspinal muscles. Muscle testing reveals normal bulk and tone overall without rigidity, spasticity , fasciculations, or atrophy. Muscle strength is 5/5 in all muscle groups of both upper extremities including deltoid, biceps, triceps, brachioradialis, wrist extension and electric system operator. In the lower extremities, strength is 5/5 in both iliopsoas, quadriceps, hamstrings, plantar flexion, dorsiflexion, and extensor hallicus longus. Sensory examination is intact to light touch and sharp/dull discrimination in both the upper and lower extremities, symmetrically. Deep tendon reflexes are 2+ and symmetrical in the biceps, triceps, and brachioradialis, bilaterally, in the upper extremities. In the lower extremities , the patellar and Achilles are 2+, bilaterally. There is a bilateral plantar flexion response. Hoffmanns sign is negative. There is no clonus or other abnormal reflexes noted. Cerebellar examination is intact to [id number] test, rapid rhythmic alternating motion. There is no dysmetria, dysdiadochokinesia, truncal ataxia, or tremor. Laboratory Laboratory Tests Test 12/05/16 06:40 12/05/16 08:30 White Blood Count 5.0 Red Blood Count 4.81 Hemoglobin 15.1 Hematocrit 44.8 Mean Corpuscular Volume 93.1 Mean Corpuscular Hemoglobin 31.4 Mean Corpuscular Hemoglobin Concent 33.8 Red Cell Distribution Width 13.9 Platelet Count 129 Mean Platelet Volume 9.3 Neutrophils (%) (Auto) 54.9 Lymphocytes (%) (Auto) 36.2 Monocytes (%) (Auto) 6.8 Eosinophils (%) (Auto) 1.3 Basophils (%) (Auto) 0.8 Neutrophils # (Auto) 2.7 Lymphocytes # (Auto) 1.8 Monocytes # (Auto) 0.3 Eosinophils # (Auto) 0.1 Basophils # (Auto) 0.0 CBC Comment AUTO DIFF Differential Total Cells Counted 100 Neutrophils % (Manual) 47 Band Neutrophils % 7 Lymphocytes % 33 Monocytes % 11 Neutrophils # (Manual) 2.8 Myelocytes 2 Differential Comment FINAL DIFF MANUAL Platelet Estimate LOW Platelet Morphology Comment NORMAL Red Cell Morphology Comment NORMAL Blood Urea Nitrogen 6 Creatinine 1.09 Random Glucose 155 Calcium Level 10.0 Sodium Level 139 Potassium Level 3.3 Chloride Level 98 Carbon Dioxide Level 19.8 Anion Gap 21 Estimat Glomerular Filtration Rate 79 Ethyl Alcohol Level LESS THAN 3 Urine Opiates Screen POS Urine Barbiturates Screen NEG Urine Amphetamines Screen NEG Urine Benzodiazepines Screen NEG Urine Cocaine Screen NEG Urine Cannabinoids Screen NEG Result Diagram: 12/05/1640 12/05/1640 Assessment and Plan Assessment and Plan New onset seizure, probable alcohol withdrawal seizure T9 compression fracture Attending Statement Neuro. neuro checks in a serial fashion. Discussed with him alternatives of treatment. recommend MRI T spine. TLSO brace MRI of the brain just in case, for new onset seizures Consulted neurology. Open pain EEG. I don't know if anticonvulsants treatment is indicated Pulmonary. aggressive pulmonary toilette, nasotracheal suction, and breathing treatments with nebulizers. PT and OT evaluation Nutrition. Oral diet Renal. monitor closely urine output, BUN and creatinine Endocrine. Monitor serial Acu checks and SSI as needed in detail ID monitor for signs of infection Protonix for stress ulcer prophylaxis Matteo hosjo ann and SCD's for DVT prophylaxis Daniele Cortes MD Dec 05, 2016 11:41
[2016-12-05] MEDS ORDERED: CHOLECALCIFEROL (VIT D3) 5000 UNIT CAP PO ONE (13:00)
--- NOTE | 2016-12-05 13:46 | RADRPT ---
EXAM DATE/TIME: 12/05/2016 12:46 [facility] COMPARISON: No previous studies available for comparison. INDICATIONS : Seizures. MEDICAL HISTORY : None. SURGICAL HISTORY : None. ENCOUNTER: Initial ACUITY: 1 day PAIN SCORE: 0/10 LOCATION: head TECHNIQUE: Multiplanar, multisequence MRI of the brain was performed without contrast. FINDINGS: CEREBRUM: The ventricles are normal for age. No evidence of midline shift, mass lesion, hemorrhage or acute in farction. No extraaxial fluid collections are seen. The pituitary gland and suprasellar cistern are normal in configuration. WHITE MATTER: Single 6 mm focus of T2 bright signal abnormality along the inner left insular cortex left basal gang jon. POSTERIOR FOSSA: The cerebellum and brainstem are intact. The 4th ventricle is midline. The cerebellopontine angle is unremarkable. The cerebellar tonsils are normal in position. DIFFUSION IMAGING: No focal areas of restricted diffusion are seen. No evidence of acute infarction. EXTRACRANIAL: The visualized portions of the orbits and paranasal sinuses are unremarkable. CONCLUSION: 1. Single 6 mm focus of T2 bright signal abnormality along the left lateral cortex/left basal ganglia , nonspecific. Followup study in 3-6 months recommended for stability. 2. The remainder of the brain is otherwise unremarkable. Christo Hope MD on December 05, 2016 at 13:40 Board Certified Radiologist. This report was verified electronically.
--- NOTE | 2016-12-05 13:49 | RADRPT ---
EXAM DATE/TIME: 12/05/2016 12:46 [facility] COMPARISON: No previous studies available for comparison. INDICATIONS : Fracture. T8/T10 Fractures. MEDICAL HISTORY : None. SURGICAL HISTORY : None. ENCOUNTER: Initial ACUITY: 1 day PAIN SCORE: 3/10 LOCATION: back TECHNIQUE: Multiplanar multisequence MRI of the thoracic spine was performed. FINDINGS: VERTEBRA: Moderate compression at T8 with diffuse T2 bright signal abnormality. Minimal retropulsion of posteri or fragments abuts the ventral cord. No canal stenosis. There is T2 bright signal abnormality along t he superior endplates at T3, T4, T5, T6 and T7 consistent with superior endplate compression fracture s. No significant loss of height. There is also very minimal involvement at T1 and T2 as well.. ALIGNMENT: Normal. CORD: Normal position and configuration. T1-T2: Normal. T2-T3: The thecal sac has a normal diameter. No evidence of disc bulge or protrusion. T3-T4: The thecal sac has a normal diameter. No evidence of disc bulge or protrusion. T4-T5: The thecal sac has a normal diameter. No evidence of disc bulge or protrusion. T5-T6: The thecal sac has a normal diameter. No evidence of disc bulge or protrusion. T6-T7: The thecal sac has a normal diameter. No evidence of disc bulge or protrusion. T7-T8: The thecal sac has a normal diameter. No evidence of disc bulge or protrusion. T8-T9: The thecal sac has a normal diameter. No evidence of disc bulge or protrusion. T9-T10: The thecal sac has a normal diameter. No evidence of disc bulge or protrusion. T10-T11: The thecal sac has a normal diameter. No evidence of disc bulge or protrusion. T11-T12: The thecal sac has a normal diameter. No evidence of disc bulge or protrusion. T12-L1: The thecal sac has a normal diameter. No evidence of disc bulge or protrusion. CONCLUSION: 1. Moderate acute compression fracture with minimal retropulsion of posterior fragments at T8. No can al stenosis. 2. Superior endplate compression fractures at T3, T4, T5, T6 and T7 vertebral bodies without signific ant loss of height and no retropulsion of posterior fragments. 3. Questionable superior plate compression fractures at T1 and T2. Christo Hope MD on December 05, 2016 at 13:44 Board Certified Radiologist. This report was verified electronically.
[2016-12-05] MEDS: MULTIVITAMIN INJ 10 ML, FOLIC ACID INJ 1 MG in SODIUM CHLORID 0.9% 500 ML INJ 500 ML IV SCH (14:00)
[2016-12-05] MEDS: THIAMINE INJ 100 MG in SODIUM CHLORIDE 0.9% INJ 100 ML IV SCH (14:00)
[2016-12-05] MEDS: MORPHINE SULFATE 4 MG/ML INJ IV PUSH PRN ×2 (15:38→18:54)
[2016-12-05 16:03] LABS: HEMOGLOBIN A1a 1.1 %; HEMOGLOBIN A1b 0.8 %; HEMOGLOBIN Ao 85.7 %; HEMOGLOBIN LA1C 2.3 %; HEMOGLOBIN P3 3.4 %
--- NOTE | 2016-12-05 22:22 | MG ---
cc: CASPER RUDD MD Lab No: Date: 12/05/2016 Age: Sex: M Race: DATE OF [address] Dr[address] Dejesus. MEDICAL HISTORY Admitted for seizure. Parents heard noise in the bathroom and found the patient unresponsive. History of alcohol use. MEDICATIONS 1. OxyContin. 2. Tramadol. 3. Morphine. DESCRIPTION The background activity is 8-9 Hz alpha superimposed by excess beta activity. Hyperventilation did not make a change in the EEG recording. Photic stimulation did not elicit a driving response. The EEG recording is contaminated by excessive eye movement and muscle artifact. There were no electrographic seizures or epileptiform discharges noted during the recording. INTERPRETATION This is a normal awake EEG. The excess beta activity is a non specific finding that may be related to medication effects like benzos and barbiturates. Absence of electrographic seizures or epileptiform discharges does not rule out a diagnosis of epilepsy. Clinical correlation is recommended. Casper Rudd MD RGO/KK /8:58 PM /10:13 PM LEN
[2016-12-06] VITALS (7 sets, daily range): BP systolic 128–152; BP diastolic 88–105; PULSE 82–102; RESP 16–18; TEMP 98–99.1; O2SAT 93–95
[2016-12-06] MEDS: oxyCODONE/ACETAMINOPHEN 7.5 MG/325 MG TAB PO PRN ×3 (03:17→16:41)
[2016-12-06] MEDS: SODIUM CHLOR 0.9% 1000 ML INJ 1,000 ML IV SCH (04:55)
[2016-12-06 07:40] LABS: AUTOMATED NEUTROPHIL # 2.9 TH/MM3 (1.8-7.7); BASOPHIL % 0.3 % (0.0-2.0); EOSINOPHIL % 1.1 % (0.0-4.0); HEMATOCRIT 37.4 % (39.0-51.0); LYMPH % 17.1 % (9.0-44.0); LYMPHOCYTE # 0.7 TH/MM3 (1.0-4.8); MEAN CELL VOLUME 92.3 FL (80.0-100.0); MEAN CORPUSCULAR HEMOGLOBIN 31.3 PG (27.0-34.0); MEAN CORPUSCULAR HGB CONC 33.9 % (32.0-36.0); MONO % 5.9 % (0.0-8.0); NEUT % 75.6 % (16.0-70.0); PLATELET COUNT 91 TH/MM3 (150-450); RED BLOOD COUNT 4.05 MIL/MM3 (4.50-5.90); RED CELL DISTRIBUTION WIDTH 13.8 % (11.6-17.2); WHITE BLOOD COUNT 3.8 TH/MM3 (4.0-11.0)
[2016-12-06 07:46] LABS: HEMO FLAGS AUTO DIFF
[2016-12-06 08:01] LABS: BICARBONATE 22.3 MEQ/L (21.0-32.0); POTASSIUM 3.3 MEQ/L (3.5-5.1)
[2016-12-06] MEDS: DOCUSATE SODIUM 50 MG/SENNA 8.6 MG TAB PO SCH (08:06)
[2016-12-06] MEDS: SODIUM CHLORIDE 0.9% FLUSH 10 ML FLUSH IV FLUSH SCH (08:06)
[2016-12-06] MEDS: POTASSIUM CHLORIDE 25 MEQ EFFERVESCENT TAB NG SCH (08:06)
[2016-12-06] MEDS: MORPHINE SULFATE 4 MG/ML INJ IV PUSH PRN ×2 (08:17→13:08)
[2016-12-06 08:45] LABS: PLATELET ESTIMATE SMEAR LOW (NORMAL); PLATELET MORPHOLOGY NORMAL (NORMAL); SCAN/DIFF AUTO DIFF CONFIRMED
[2016-12-06] MEDS ORDERED: FOLI-31 PO ×2 (09:31→14:28)
[2016-12-06] MEDS ORDERED: GNP100TA3 PO ×2 (09:31→14:28)
[2016-12-06] MEDS ORDERED: OXYC1TAB35 PO ×2 (09:31→14:28)
--- NOTE | 2016-12-06 09:38 | HHI.PR ---
Subjective Remarks Follow up for Alcohol withdrawal, thoracic vertebrae fractures, alcohol seizures. Patient is doing much better today. He complains of pain but tremors are much improved. No fever, chills. Objective Vitals Vital Signs Date Time Temp Pulse Resp B/P (MAP) Pulse Ox O2 Delivery O2 Flow Rate FiO2 12/06/16 08:25 98.5 83 16 146/90 (108) 95 12/06/16 06:19 95 21 12/06/16 04:20 18 12/06/16 03:13 98.8 82 18 152/88 (109) 95 12/06/16 00:47 99.1 99 18 128/91 (103) 93 12/05/16 21:30 98.8 92 18 137/96 (110) 95 12/05/16 18:39 97.6 83 20 149/101 (117) 95 12/05/16 18:15 12/05/16 16:37 75 18 148/89 (108) 96 Room Air 12/05/16 15:53 18 12/05/16 15:45 94 20 135/97 (110) 97 Room Air 12/05/16 12:00 88 18 140/90 (107) 97 Room Air 12/05/16 11:00 86 18 140/87 (104) 96 Room Air I/O 12/05/16 12/05/16 12/05/16 12/06/16 12/06/16 12/06/16 07:00 15:00 23:00 07:00 15:00 23:00 Intake Total 100 ml Balance 100 ml Intake IV Total 100 ml Result Diagram: 12/06/16 0550 12/06/16 0550 Imaging MRI T spine 1. Moderate acute compression fracture with minimal retropulsion of posterior fragments at T8. No canal stenosis. 2. Superior endplate compression fractures at T3, T4, T5, T6 and T7 vertebral bodies without significant loss of height and no retropulsion of posterior fragments. 3. Questionable superior plate compression fractures at T1 and T2. MRI brain 1. Single 6 mm focus of T2 bright signal abnormality along the left lateral cortex/left basal ganglia, nonspecific. Followup study in 3-6 months recommended for stability. 2. The remainder of the brain is otherwise unremarkable. Objective Remarks GENERAL: AOX3, NAD. SKIN: Warm and dry. HEAD: Normocephalic. EYES: No scleral icterus. No injection or drainage. NECK: Supple, trachea midline. No JVD or lymphadenopathy. CARDIOVASCULAR: Regular rate and rhythm without murmurs, gallops, or rubs. RESPIRATORY: Breath sounds equal bilaterally. No accessory muscle use. GASTROINTESTINAL: Abdomen soft, non-tender, nondistended. MUSCULOSKELETAL: No cyanosis, or edema. BACK: Nontender without obvious deformity. No CVA tenderness. Procedures EEG 12/05/2016 INTERPRETATION This is a normal awake EEG. The excess beta activity may be related to medication effects like benzos and barbiturates. Absence of electrographic seizures or epileptiform discharges does not rule out a diagnosis of epilepsy. Clinical correlation is recommended. A/P Problem List: (1) New onset seizure ICD Code: R56.9 - Unspecified convulsions Status: Acute (2) Compression fx, thoracic spine ICD Code: S22.000A - Wedge compression fracture of unspecified thoracic vertebra, initial encounter for closed fracture Status: Acute Assessment and Plan 31-year-old male with history of alcohol abuse presents after a seizure this morning 12/05. New Onset Seizure: suspect alcohol withdrawal. Patient has been trying to quit alcohol. Head CT images reviewed, no acute findings. Etoh level 3. UDS positive for opiates only, patient admits taking 1/2tab of perocet few days ago for back pain (story endorsed by his mother) - brain MRI with and without contrast - essentially an unremarkable study. Images reviewed by me. -Normal EEG. -seizure precautions, neuro checks -IV ativan prn seizure -consult neurology, discussed with Dr. Khan on the day of admission. -treat alcohol withdrawal Acute Alcohol Withdrawal: patient very tremulous and anxious, confused at times , consistent with alcohol withdrawal -Continue Librium, Folic acid, Thiamine on discharge. Compression Fracture: suspect acute secondary to fall with seizure as above. CT thoracic spine images reviewed, T8 with mild to moderate compression fracture with minimal retropulsion but without significant canal stenosis or spondylolisthesis; minimal relatively nondisplaced superior endplate fracture of T10 without retropulsion; minimal scoliosis. -Consult neurosurgery -T-spine MRI - shows multiple vertebral fractures. NS recommends conservative treatments with Brace. - Patient to wear TLSO brace when not in bed. - pain control with Percocet prn and IV morphine prn breakthrough pain - Discussed with NS on 12/06/2016, recommended continuous brace use except when in bed. NS is okay with patient's discharge home today. Hypokalemia: K 3.3 -replaced with po KCl Vitamin D Deficiency: vitamin D level 29, suspect secondary to alcohol abuse and poor nutrition -given cholecalciferol [id number] x1 now -Can use OTC vitamin D supplement. Dehydration: diminished GFR 79, dry MM on exam -Creatinine, eGFR improved. DVT Prophylaxis: teds/SCDs Discharge patient to home Condition on discharge: Improved Regular Diet as tolerated Ad Catie activity Rx written: New Medications: Folic Acid-B12-B6 (Foltabs) 0.8-115-10 Mg Tab Potassium Chloride ER (K-Tab) 10 Meq Tab Chlordiazepoxide HCl 10 Mg Capsule Oxycodone-Acetaminophen 7.5-325 mg Tab Thiamine HCl (Gnp Vitamin B-1) 100 Mg Tab Follow-up with primary care physician within 1-2 weeks. Neurosurgery within 2 weeks. Problem Qualifiers (1) Compression fx, thoracic spine: Qualified Codes: S22.000A - Wedge compression fracture of unspecified thoracic vertebra, initial encounter for closed fracture Justino Oviedo DO Dec 06, 2016 09:38
[2016-12-06] MEDS: THIAMINE INJ 100 MG in SODIUM CHLORIDE 0.9% INJ 100 ML IV SCH (11:40)
[2016-12-06] MEDS: MULTIVITAMIN INJ 10 ML, FOLIC ACID INJ 1 MG in SODIUM CHLORID 0.9% 500 ML INJ 500 ML IV SCH (12:43)
[2016-12-06] MEDS ORDERED: CHLO10CA5 PO (14:26)
[2016-12-06] MEDS ORDERED: K-TA10TA PO (14:34)
--- NOTE | 2016-12-06 16:53 | HHI.NSPN ---
Note Status Status: Progress Note Interval History Interval History This is a 31-year-old male brought to [facility] with new onset seizures earlier this morning. He was found by his parents in a small bathroom having generalized tonic-clonic seizures. The parents apparently heard a noise and came to assist him. The patient has been trying to quit alcohol. He states he last drank four or five drinks some seven or eight days ago. He was also positive for opiates. He never had seizures before. He is taking no medication on a regular basis. He denies any focal motor weakness. He denies any sensory loss. He denies any incontinence of stool or urine. CT of the thoracic spine showed a T8 compression fracture with minimal retropulsion motion without significant canal stenosis. Neurosurgical consultation was requested 12/06: MRI Brain and T spine completed. Stable thoracic pain. denies focal weakness or paresthesias in legs. Labs, Micro, & Vital Signs Results Date Time Temp Pulse Resp B/P (MAP) Pulse Ox O2 Delivery O2 Flow Rate FiO2 12/06/16 15:21 98.0 102 16 139/105 (116) 93 12/06/16 11:50 98.5 92 16 146/93 (110) 94 12/06/16 08:25 98.5 83 16 146/90 (108) 95 12/06/16 06:19 95 21 12/06/16 04:20 18 12/06/16 03:13 98.8 82 18 152/88 (109) 95 12/06/16 00:47 99.1 99 18 128/91 (103) 93 12/05/16 21:30 98.8 92 18 137/96 (110) 95 12/05/16 18:39 97.6 83 20 149/101 (117) 95 12/05/16 18:15 12/07/16 07:00 Intake Total 1400 ml Balance 1400 ml Constitutional Vital Signs Date Time Temp Pulse Resp B/P (MAP) Pulse Ox O2 Delivery O2 Flow Rate FiO2 12/06/16 15:21 98.0 102 16 139/105 (116) 93 12/06/16 11:50 98.5 92 16 146/93 (110) 94 12/06/16 08:25 98.5 83 16 146/90 (108) 95 12/06/16 06:19 95 21 12/06/16 04:20 18 12/06/16 03:13 98.8 82 18 152/88 (109) 95 12/06/16 00:47 99.1 99 18 128/91 (103) 93 12/05/16 21:30 98.8 92 18 137/96 (110) 95 12/05/16 18:39 97.6 83 20 149/101 (117) 95 12/05/16 18:15 12/07/16 07:00 Intake Total 1400 ml Balance 1400 ml Review of Systems/Exam Exam Mr. Hercules is alert, awake and oriented to time, place and person. Speech is fluent. Cranial nerve examination: pupils to be equal, round, and reactive to light. Extra-ocular movements are intact. Neck is soft and supple. Muscle strength is 5/5 in all muscle groups of both upper extremities including deltoid, biceps, triceps and bulk mail clerk. In the lower extremities, strength is 5/5 in both iliopsoas, quadriceps, hamstrings, plantar flexion, dorsiflexion, and extensor hallicus longus. Sensory examination is intact to light touch in both the upper and lower extremities, symmetrically. Bilateral plantar flexion response. Cerebellar examination is intact to [id number] test Medications Current Medications Current Medications Medications (Trade) Dose Ordered Sig/Oz Route PRN Reason Start Time Stop Time Status Last Admin Dose Admin Sodium Chloride 1,000 ml @ 100 mls/hr Q10H IV 12/05/16 09:00 12/05/16 22:25 Sodium Chloride (NS Flush) 2 ml UNSCH PRN IV FLUSH FLUSH AFTER USING IV ACCESS 12/05/16 08:15 Sodium Chloride (NS Flush) 2 ml BID IV FLUSH 12/05/16 09:00 12/05/16 22:26 Acetaminophen (Tylenol) 650 mg Q4H PRN PO Headache, fever, pain 1-4 12/05/16 08:15 Ondansetron HCl (Zofran Inj) 4 mg Q6H PRN IVP NAUSEA OR VOMITING 12/05/16 08:15 Naloxone HCl (Narcan Inj) 0.4 mg UNSCH PRN IV SEE LABEL COMMENTS 12/05/16 08:15 Senna/Docusate Sodium (Tori-Colace) 1 tab BID PO 12/05/16 09:00 Magnesium Hydroxide (Milk Of Magnesia Liq) 30 ml Q12H PRN PO MILD - MODERATE CONSTIPATION 12/05/16 08:15 Sennosides (Senokot) 17.2 mg Q12H PRN PO MODERATE - SEVERE CONSTIPATION 12/05/16 08:15 Bisacodyl (Dulcolax Supp) 10 mg DAILY PRN RECTAL SEVERE CONSITIPATION 12/05/16 08:15 Lactulose (Lactulose Liq) 30 ml DAILY PRN PO SEVERE CONSITIPATION 12/05/16 08:15 Potassium Bicarb/ Potassium Chloride (K-Lyte Cl Eff) 25 meq DAILY NG 12/05/16 09:00 12/06/16 08:06 Lorazepam (Ativan Inj) 1 mg Q2H PRN IV PUSH seizure/alcohol withdrawal 12/05/16 09:15 Multivitamins 10 ml/Folic Acid 1 mg/Sodium Chloride 510.2 ml @ 125 mls/hr Q24H IV 12/05/16 12:00 12/10/16 11:59 12/06/16 12:43 Thiamine HCl 100 mg/Sodium Chloride 101 ml @ 100 mls/hr Q24H IV 12/05/16 12:00 12/08/16 11:59 12/06/16 11:40 Thiamine HCl (Vitamin B1) 100 mg DAILY PO 12/08/16 09:00 Flumazenil (Romazicon Inj) 0.2 mg Q1M PRN IV PUSH SEE LABEL COMMENTS 12/05/16 09:30 Lorazepam (Ativan) 1 mg Q4H PRN PO CIWA 8 - 10 12/05/16 09:30 12/05/16 22:32 Lorazepam (Ativan Inj) 1 mg Q4H PRN IV PUSH CIWA 8 - 10 12/05/16 09:30 12/05/16 14:10 Lorazepam (Ativan) 2 mg Q2H PRN PO CIWA 11-14 12/05/16 09:30 Lorazepam (Ativan Inj) 2 mg Q2H PRN IV PUSH CIWA 11-14 12/05/16 09:30 Lorazepam (Ativan Inj) 2 mg Q1H PRN IV PUSH CIWA 15-20 12/05/16 09:30 Lorazepam (Ativan Inj) 2 mg Q15M PRN IV PUSH CIWA > 20 12/05/16 09:30 Haloperidol Lactate (Haldol Inj) 2 mg Q15M PRN IM SEE LABEL COMMENTS 12/05/16 09:30 Oxycodone/ Acetaminophen (Percocet 7.5-325 Mg) 1 tab Q6H PRN PO pain scale 5-10 12/05/16 09:45 12/06/16 16:41 Morphine Sulfate (Morphine Inj) 2 mg Q3H PRN IV PUSH breakthrough pain 12/05/16 10:00 12/06/16 13:08 Chlordiazepoxide (Librium) 10 mg QID PRN PO Alcohol withdrawal 12/06/16 13:15 Medical Decision Making MDM Remarks 31 y/o male presents with new onset seizures causing fall and multiple acute thoracic compression fractures MRI Brain shows a 6 mm lesion left basal ganglia which appears benign, no mass effect or midline shift Plan Plan Remarks cont mgt of seizures per Neurology nonsurgical management of fractures with TLSO brace and analgesics clear to dc home from NRS standpoint once cleared with Neurology, he may follow up in office in 4 weeks Brittany Blanco Dec 06, 2016 16:53
[2016-12-08] MEDS ORDERED: THIAMINE HCL 100 MG TAB PO SCH (09:00)
== END 2016-12-06 17:38 | disposition home or self-care (01) | DRG 101 ==
LOC: NEPC 06:07 → NEDA 08:29 → NEPFCDU 18:14
PROVIDERS: ADMIT Hospitalist; ATTEND Hospitalist
DX: G40.89 Other seizures (principal); F10.231 Alcohol dependence with withdrawal delirium; S22.068A Other fracture of T7-T8 thoracic vertebra, initial encounter for closed fracture; E87.6 Hypokalemia; E55.9 Vitamin D deficiency, unspecified; E86.0 Dehydration; Z87.891 Personal history of nicotine dependence; W18.11XA Fall from or off toilet without subsequent striking against object, initial encounter; Y92.002 Bathroom of unspecified non-institutional (private) residence as the place of occurrence of the external cause
CPT/HCPCS: 70450; 70551; 72125; 72128; 72146; 80048; 80307; 82306; 83036; 85007; 85025; 85027; 95819; 96374; J2060; J2270; J3411; J7030; J7040; L0200; L0484